=== PATIENT | female | born 1980 | race Caucasian/White ===

== ENCOUNTER 2018-03-15 04:00 | Emergency (ER) | payer SELFPAY ==
[~2018-03-15] VITALS: Ht 175.3 cm; Wt 122.7 kg
[~2018-03-15 04:00] MED LIST: FLEXERIL5 MG PO; MOTRIN 800800 MG/TAB PO; NO HOME MEDICATIONS; NORCO PO
[2018-03-15 04:07] VITALS: TEMP 97.6
[2018-03-15 04:23] LABS: COLLECTION METHOD CLEAN CATCH
[2018-03-15 04:36] LABS: MUCOUS Present /lpf; PH 5 (5-8); SQUAMOUS EPITHELIAL 0-2 /hpf; URINE APPEARANCE Clear; URINE BACTERIA None Seen /hpf; URINE BILIRUBIN Negative (NEGATIVE); URINE BLOOD Negative (NEGATIVE); URINE COLOR Yellow; URINE GLUCOSE Negative (NEGATIVE); URINE KETONE Negative (NEGATIVE); URINE LEUKOCYTE ESTERASE Negative (NEGATIVE); URINE NITRATE Negative (NEGATIVE); URINE PROTEIN(semi-quant) 1+ (NEGATIVE); URINE RBC 0-2 /hpf; URINE UROBILINOGEN Negative (NEGATIVE)
[2018-03-15 04:59] LABS: BASO % 0.6 % (0.0-2.0); EOS # 0.3 (0.0-0.7); EOS % 5.1 % (0-4.0); GRAN # 4.2 (1.4-6.5); HEMATOCRIT 39.8 % (37.0-47.0); HEMOGLOBIN 13.4 g/dl (12.5-16.0); LYMPH # 1.4 (1.2-3.4); LYMPH % 21.5 % (20.0-51.0); MEAN CELL VOLUME 84 fl (80.0-100.0); MEAN CORPUSCULAR HEMOGLOBIN 28 pg (27.0-31.0); MEAN CORPUSCULAR HGB CONC 34 g/dl (33.0-37.0); MEAN PLATELET VOLUME 9.1 fl (7.4-10.4); MONO # 0.6 (0.1-0.6); MONO % 9.5 % (1.7-9.3); PLATELET COUNT 249 K/mm3 (130-400); RED BLOOD COUNT 4.75 M/mm3 (4.10-5.30); REDCELL DISTRIBUTION WIDTH-CV 12.4 % (11.5-14.5)
[2018-03-15 05:13] LABS: ALBUMIN 4.3 gm/dL (3.5-5.0); BILIRUBIN,TOTAL 0.4 mg/dL (0.0-1.0); C-REACTIVE PROTEIN 1.6 mg/dL (0.0-0.9); CALCIUM 9.2 mg/dL (8.4-10.2); CREATININE, serum 0.83 mg/dL (0.52-1.25); POTASSIUM 3.7 mmol/L (3.4-5.0); TOTAL PROTEIN 7.7 gm/dL (6.4-8.2)
[2018-03-15] MEDS ORDERED: LEVAQUIN 750MG750 M1 PO (05:48)
[2018-03-15] MEDS ORDERED: PHENERGAN W/CO120 M1 PO (05:48)
[2018-03-15 07:04] VITALS: BP 98/49; PULSE 104
== END 2018-03-15 07:06 | disposition home or self-care (01) ==
LOC: COL.ER 04:00
PROVIDERS: Emergency Medicine
DX: J18.1 Lobar pneumonia, unspecified organism (principal)
CPT/HCPCS: J1100; J1956; J7030

== ENCOUNTER 2018-04-24 21:22 | Emergency (ER) | payer SELFPAY ==
[~2018-04-24] VITALS: Ht 175.3 cm; Wt 122.7 kg
[~2018-04-24 21:22] MED LIST changes: +LEVAQUIN 750MG750 M1 PO; +PHENERGAN W/CO120 M1 PO
[2018-04-24] MEDS ORDERED: NAPROXEN 3375 MG/TAB PO (22:02)
[2018-04-24] MEDS ORDERED: NORCO 325 MG-51 TAB PO (22:02)
[2018-04-24 22:20] VITALS: BP 131/81; PULSE 86; TEMP 97.8
== END 2018-04-24 22:20 | disposition home or self-care (01) ==
LOC: COL.ER 21:22
DX: S93.601A Unspecified sprain of right foot, initial encounter (principal); X50.0XXA Overexertion from strenuous movement or load, initial encounter; Y92.009 Unspecified place in unspecified non-institutional (private) residence as the place of occurrence of the external cause

== ENCOUNTER 2018-07-25 10:07 | Emergency (ER) | payer MEDICAID ==
[~2018-07-25] VITALS: Ht 175.3 cm; Wt 122.7 kg
[~2018-07-25 10:07] MED LIST changes: +NAPROXEN 3375 MG/TAB PO; +NORCO 325 MG-51 TAB PO
[2018-07-25 10:11] VITALS: TEMP 97.2
[2018-07-25] MEDS ORDERED: CLARITIN 1010 MG/TAB PO (10:19)
[2018-07-25] MEDS ORDERED: ZYRTEC 10MG10 MG PO (10:21)
[2018-07-25] MEDS ORDERED: FIORICET 325 MG1 TA1 PO (11:15)
[2018-07-25] MEDS ORDERED: ZOFRAN 4MG T4 MG/TAB PO (11:16)
[2018-07-25 11:42] VITALS: BP 94/56; PULSE 70
== END 2018-07-25 11:44 | disposition home or self-care (01) ==
LOC: COL.ER 10:07
DX: G43.909 Migraine, unspecified, not intractable, without status migrainosus (principal); F31.9 Bipolar disorder, unspecified; F20.9 Schizophrenia, unspecified; Z87.891 Personal history of nicotine dependence; Z98.890 Other specified postprocedural states
CPT/HCPCS: J1885; J2550

== ENCOUNTER 2018-08-16 00:13 | Emergency (ER) | payer MEDICAID ==
[~2018-08-16] VITALS: Ht 175.3 cm; Wt 122.7 kg
[~2018-08-16 00:13] MED LIST changes: +CLARITIN 1010 MG/TAB PO; +FIORICET 325 MG1 TA1 PO; +ZOFRAN 4MG T4 MG/TAB PO; +ZYRTEC 10MG10 MG PO
[2018-08-16 00:16] VITALS: TEMP 97.1
[2018-08-16 01:04] LABS: BASO # 0.1 (0.0-0.2); BASO % 0.7 % (0.0-2.0); EOS # 0.4 (0.0-0.7); EOS % 4.6 % (0-4.0); GRAN # 5.2 (1.4-6.5); GRAN % 59.5 % (42.2-75.2); HEMATOCRIT 37.9 % (37.0-47.0); LYMPH # 2.4 (1.2-3.4); LYMPH % 28.2 % (20.0-51.0); MEAN CELL VOLUME 84 fl (80.0-100.0); MEAN CORPUSCULAR HEMOGLOBIN 29 pg (27.0-31.0); MEAN CORPUSCULAR HGB CONC 34 g/dl (33.0-37.0); MEAN PLATELET VOLUME 9.4 fl (7.4-10.4); MONO # 0.6 (0.1-0.6); MONO % 6.7 % (1.7-9.3); PLATELET COUNT 304 K/mm3 (130-400); RED BLOOD COUNT 4.54 M/mm3 (4.10-5.30); REDCELL DISTRIBUTION WIDTH-CV 12.7 % (11.5-14.5)
[2018-08-16 01:18] LABS: ALANINE AMINOTRANSFERASE 28 U/L (9-52); ALBUMIN 4.1 gm/dL (3.5-5.0); ALKALINE PHOSPHATASE 64 U/L (50-136); ANION GAP 10 mmol/L (7-16); AST,SGOT 29 U/L (15-37); BILIRUBIN,TOTAL 0.5 mg/dL (0.0-1.0); BLOOD UREA NITROGEN 13 mg/dL (7-17); C-REACTIVE PROTEIN 1.1 mg/dL (0.0-0.9); CALCIUM 9.4 mg/dL (8.4-10.2); CARBON DIOXIDE 26 mmol/L (22-30); CHLORIDE 105 mmol/L (98-107); CREATININE, serum 0.73 (0.52-1.25); GLUCOSE 108 mg/dL (74-106); POTASSIUM 3.7 mmol/L (3.4-5.0); SODIUM 141 mmol/L (137-145); TOTAL PROTEIN 7.3 gm/dL (6.4-8.2)
[2018-08-16 01:26] LABS: TROPONIN-I < 0.012 ng/mL (0.000-0.035)
[2018-08-16 02:56] LABS: COLLECTION METHOD CLEAN CATCH
[2018-08-16 03:01] LABS: MUCOUS Present /lpf; PH 7 (5-8); SQUAMOUS EPITHELIAL 0-2 /hpf; URINE APPEARANCE Clear; URINE BACTERIA None Seen /hpf; URINE BILIRUBIN Negative (NEGATIVE); URINE BLOOD Negative (NEGATIVE); URINE COLOR Yellow; URINE GLUCOSE Negative (NEGATIVE); URINE KETONE Negative (NEGATIVE); URINE LEUKOCYTE ESTERASE Trace (NEGATIVE); URINE NITRATE Negative (NEGATIVE); URINE PROTEIN(semi-quant) Negative (NEGATIVE); URINE RBC 0-2 /hpf; URINE UROBILINOGEN Negative (NEGATIVE)
[2018-08-16] MEDS ORDERED: ZITHROMAX Z PA250 MG PO (03:56)
[2018-08-16 05:16] VITALS: BP 104/60; PULSE 75
== END 2018-08-16 05:16 | disposition home or self-care (01) ==
LOC: COL.ER 00:13
PROVIDERS: Physician Assistant
DX: R07.89 Other chest pain (principal); M79.601 Pain in right arm; G43.909 Migraine, unspecified, not intractable, without status migrainosus
CPT/HCPCS: J1885; J2060

== ENCOUNTER → 2018-09-04 | Outpatient (CLI) | payer MEDICAID ==
[~2018-09-04] MED LIST changes: +ZITHROMAX Z PA250 MG PO
[2018-09-04 17:19] LABS: CHOLESTEROL RISK RATIO 4.3
== END ==
LOC: ZCOL.LAB 16:05
PROVIDERS: Family Medicine
DX: Z13.1 Encounter for screening for diabetes mellitus (principal); Z13.220 Encounter for screening for lipoid disorders

== ENCOUNTER → 2018-10-09 | Outpatient (CLI) | payer MEDICAID | LOC: ZCOL.LAB 16:30 | DX: E66.01 Morbid (severe) obesity due to excess calories (principal) ==

== ENCOUNTER 2019-01-07 22:49 | Emergency (ER) | payer MEDICAID ==
[~2019-01-07] VITALS: Ht 175.3 cm; Wt 122.7 kg
[2019-01-07 23:44] LABS: STREP SCREEN NEGATIVE
[2019-01-08] MEDS ORDERED: PREDNISONE20 MG PO (00:08)
[2019-01-08 00:23] VITALS: BP 132/76; PULSE 96; TEMP 98.7
== END 2019-01-08 00:23 | disposition home or self-care (01) ==
LOC: COL.ER 22:49
PROVIDERS: Nurse Practitioner
DX: J20.9 Acute bronchitis, unspecified (principal); F31.9 Bipolar disorder, unspecified; G43.909 Migraine, unspecified, not intractable, without status migrainosus; F20.9 Schizophrenia, unspecified; Z87.891 Personal history of nicotine dependence
CPT/HCPCS: J7512

== ENCOUNTER 2019-01-21 01:59 | Emergency (ER) | payer MEDICAID ==
[~2019-01-21 01:59] MED LIST changes: +PREDNISONE20 MG PO
[2019-01-21 02:07] VITALS: BP 129/85; PULSE 93; TEMP 97.1
[2019-01-21 02:34] LABS: COLLECTION METHOD CLEAN CATCH
[2019-01-21 02:43] LABS: MUCOUS Present /lpf; PH 5 (5-8); SQUAMOUS EPITHELIAL 0-2 /hpf; URINE APPEARANCE Clear; URINE BACTERIA Rare /hpf; URINE BILIRUBIN Negative (NEGATIVE); URINE BLOOD Negative (NEGATIVE); URINE COLOR Yellow; URINE GLUCOSE Negative (NEGATIVE); URINE KETONE Negative (NEGATIVE); URINE LEUKOCYTE ESTERASE Negative (NEGATIVE); URINE NITRATE Negative (NEGATIVE); URINE PROTEIN(semi-quant) Negative (NEGATIVE); URINE RBC 0-2 /hpf; URINE UROBILINOGEN Negative (NEGATIVE)
[2019-01-21] MEDS ORDERED: CEPHALEXIN500 M1 PO (02:58)
== END 2019-01-21 03:11 | disposition home or self-care (01) ==
LOC: COL.ER 01:59
PROVIDERS: Emergency Medicine
DX: L60.0 Ingrowing nail (principal); N89.8 Other specified noninflammatory disorders of vagina; Z87.891 Personal history of nicotine dependence

== ENCOUNTER 2019-01-29 15:03 | Emergency (ER) | payer MEDICAID ==
[~2019-01-29] VITALS: Ht 175.3 cm; Wt 118.2 kg
[~2019-01-29 15:03] MED LIST changes: +CEPHALEXIN500 M1 PO
[2019-01-29 15:12] VITALS: BP 121/75; TEMP 96.8
[2019-01-29] MEDS ORDERED: BACTRIM DS 8001 TAB PO (15:32)
[2019-01-29 15:49] VITALS: PULSE 78
== END 2019-01-29 15:51 | disposition home or self-care (01) ==
LOC: COL.ER 15:03
DX: L60.0 Ingrowing nail (principal); L08.9 Local infection of the skin and subcutaneous tissue, unspecified; Z87.891 Personal history of nicotine dependence; Z98.890 Other specified postprocedural states

== ENCOUNTER → 2019-07-13 | Outpatient (CLI) | payer MEDICAID ==
[~2019-07-13] MED LIST changes: +BACTRIM DS 8001 TAB PO
== END ==
LOC: ZCOL.LAB 18:59
DX: Z11.59 Encounter for screening for other viral diseases (principal)

== ENCOUNTER 2019-12-12 22:27 | Emergency (ER) | payer BC, MEDICAID ==
[~2019-12-12] VITALS: Ht 175.3 cm; Wt 112.5 kg
[~2019-12-12 22:27] MED LIST changes: +FLEXERIL 1010 MG/TAB PO
[2019-12-12 23:53] LABS: BASO # 0.1 (0.0-0.2); BASO % 0.6 % (0.0-2.0); EOS # 0.6 (0.0-0.7); EOS % 5.6 % (0-4.0); GRAN # 6.7 (1.4-6.5); GRAN % 61.9 % (42.2-75.2); HEMATOCRIT 37.5 % (37.0-47.0); HEMOGLOBIN 12.5 g/dl (12.5-16.0); LYMPH # 2.8 (1.2-3.4); LYMPH % 25.6 % (20.0-51.0); MEAN CELL VOLUME 85 fl (80.0-100.0); MEAN CORPUSCULAR HEMOGLOBIN 28 pg (27.0-31.0); MEAN CORPUSCULAR HGB CONC 33 g/dl (33.0-37.0); MEAN PLATELET VOLUME 9.6 fl (7.4-10.4); MONO # 0.7 (0.1-0.6); PLATELET COUNT 292 K/mm3 (130-400); REDCELL DISTRIBUTION WIDTH-CV 12.4 % (11.5-14.5)
[2019-12-13 00:08] LABS: ALANINE AMINOTRANSFERASE 22 U/L (4-34); ALBUMIN 4.2 gm/dL (3.5-5.0); ALKALINE PHOSPHATASE 58 U/L (50-136); ANION GAP 7 mmol/L (7-16); AST,SGOT 24 U/L (15-37); BILIRUBIN,TOTAL 0.5 mg/dL (0.0-1.0); BLOOD UREA NITROGEN 10 mg/dL (7-17); C-REACTIVE PROTEIN 1.4 mg/dL (0.0-0.9); CALCIUM 9.5 mg/dL (8.4-10.2); CARBON DIOXIDE 28 mmol/L (22-30); CHLORIDE 103 mmol/L (98-107); CREATININE, serum 0.75 (0.52-1.25); GLUCOSE 111 mg/dL (74-106); LIPASE 91 U/L (23-300); POTASSIUM 3.6 mmol/L (3.4-5.0); SODIUM 138 mmol/L (137-145)
[2019-12-13 00:18] LABS: TROPONIN-I < 0.012 ng/mL (0.000-0.035)
[2019-12-13 03:35] VITALS: BP 132/67; PULSE 82; TEMP 97.8
== END 2019-12-13 03:37 | disposition home or self-care (01) ==
LOC: COL.ER 22:27
PROVIDERS: Emergency Medicine
DX: R07.89 Other chest pain (principal); R05 Cough; F17.210 Nicotine dependence, cigarettes, uncomplicated; Z20.828 Contact with and (suspected) exposure to other viral communicable diseases
CPT/HCPCS: J1170; J1885; J7030

== ENCOUNTER 2020-06-29 23:27 | Emergency (ER) | payer BC, MEDICAID ==
[~2020-06-29] VITALS: Ht 175.3 cm; Wt 117.3 kg
[2020-06-29 23:40] VITALS: TEMP 97
[2020-06-30 02:22] VITALS: BP 152/78; PULSE 73
== END 2020-06-30 02:22 | disposition home or self-care (01) ==
LOC: COL.ER 23:27
DX: M25.511 Pain in right shoulder (principal)
CPT/HCPCS: J1170; J2550

== ENCOUNTER 2021-03-28 15:37 | Emergency (ER) | payer BC, MEDICAID ==
[~2021-03-28] VITALS: Ht 175.4 cm; Wt 115.0 kg
[2021-03-28 17:24] VITALS: BP 145/81; PULSE 81; TEMP 98.2
[2021-03-28] MEDS ORDERED: PROVENTIL0.09 MG/A1 IH (18:35)
[2021-03-28] MEDS ORDERED: TESSALON P100 MG/CAP PO (18:35)
[2021-03-28] MEDS ORDERED: PREDNISONE20 MG PO (18:35)
== END 2021-03-28 18:42 | disposition home or self-care (01) ==
LOC: COL.ER 15:37
DX: J20.9 Acute bronchitis, unspecified (principal); J45.909 Unspecified asthma, uncomplicated; Z20.822 Contact with and (suspected) exposure to COVID-19

== ENCOUNTER 2021-05-04 15:30 | Emergency (ER) | payer BC, MEDICAID ==
[~2021-05-04] VITALS: Ht 175.3 cm; Wt 116.2 kg
[~2021-05-04 15:30] MED LIST changes: +PROVENTIL0.09 MG/A1 IH; +TESSALON P100 MG/CAP PO
[2021-05-04 15:40] VITALS: TEMP 97.3
[2021-05-04] MEDS ORDERED: FLEXERIL 1010 MG/TAB PO (17:15)
[2021-05-04] MEDS ORDERED: PERCOCET 325 MG1 TA2 PO (17:15)
[2021-05-04 17:24] VITALS: BP 117/73; PULSE 79
== END 2021-05-04 17:41 | disposition home or self-care (01) ==
LOC: COL.ER 15:30
DX: R50.9 Fever, unspecified (principal)
CPT/HCPCS: J1885; J2360

== ENCOUNTER 2021-09-26 14:01 | Emergency (ER) | payer BC, MEDICAID ==
[~2021-09-26] VITALS: Ht 175.3 cm; Wt 118.2 kg
[~2021-09-26 14:01] MED LIST changes: +PERCOCET 325 MG1 TA2 PO
[2021-09-26 14:34] VITALS: TEMP 98
[2021-09-26 15:15] LABS: BASO % 0.5 % (0.0-2.0); EOS # 0.3 K/mm3 (0.0-0.7); EOS % 3.4 % (0.0-4.0); GRAN # 4.7 K/mm3 (1.4-6.5); GRAN % 60.3 % (42.2-75.2); HEMATOCRIT 39.5 % (37.0-47.0); HEMOGLOBIN 13.3 g/dl (12.5-16.0); LYMPH # 2.2 K/mm3 (1.2-3.4); LYMPH % 28.8 % (20.0-51.0); MEAN CELL VOLUME 83 fl (80.0-100.0); MEAN CORPUSCULAR HEMOGLOBIN 28 pg (27-31); MEAN CORPUSCULAR HGB CONC 34 g/dl (33.0-37.0); MEAN PLATELET VOLUME 9.5 fl (7.4-10.4); MONO # 0.5 K/mm3 (0.1-0.6); MONO % 6.7 % (1.7-9.3); PLATELET COUNT 321 K/mm3 (130-400); RED BLOOD COUNT 4.76 M/mm3 (4.10-5.30); REDCELL DISTRIBUTION WIDTH-CV 12.9 % (11.5-14.5)
[2021-09-26 15:38] LABS: ALANINE AMINOTRANSFERASE 27 U/L (0-55); ALBUMIN 4.3 gm/dL (3.5-5.0); ALKALINE PHOSPHATASE 64 U/L (40-150); ANION GAP 11 mmol/L (7-16); AST,SGOT 23 U/L (5-34); BILIRUBIN,TOTAL 0.5 mg/dL (0.2-1.2); BLOOD UREA NITROGEN 12 mg/dL (7-19); CALCIUM 9.6 mg/dL (8.4-10.2); CARBON DIOXIDE 25 mmol/L (22-29); CHLORIDE 107 mmol/L (98-107); CREATININE, serum 0.77 mg/dL (0.57-1.11); GLUCOSE 84 mg/dL (70-99); LIPASE 22 U/L (8-78); POTASSIUM 3.6 mmol/L (3.5-4.5); SODIUM 143 mmol/L (136-145); TOTAL PROTEIN 7.7 gm/dL (6.2-8.1)
[2021-09-26 15:52] LABS: TROPONIN-I < 0.010 ng/mL (0.00-0.033)
[2021-09-26] MEDS ORDERED: REGLAN 10MG10 MG/TAB PO (17:13)
[2021-09-26] MEDS ORDERED: PROTONIX 40MG T40 MG PO (17:13)
[2021-09-26 17:20] VITALS: BP 134/84; PULSE 63
== END 2021-09-26 17:28 | disposition home or self-care (01) ==
LOC: COL.ER 14:01
PROVIDERS: Emergency Medicine
DX: R10.11 Right upper quadrant pain (principal); R10.13 Epigastric pain; R11.0 Nausea; Z32.02 Encounter for pregnancy test, result negative
CPT/HCPCS: J2270; J2765; J7030; Q9967

== ENCOUNTER 2021-11-23 13:47 | Emergency (ER) | payer BC, MEDICAID ==
[~2021-11-23] VITALS: Ht 175.3 cm; Wt 117.3 kg
[~2021-11-23 13:47] MED LIST changes: +PROTONIX 40MG T40 MG PO; +REGLAN 10MG10 MG/TAB PO
[2021-11-23 14:02] VITALS: TEMP 97.9
[2021-11-23] MEDS ORDERED: NORCO 325 MG-51 TAB PO (14:42)
[2021-11-23 15:00] VITALS: BP 132/77; PULSE 89
== END 2021-11-23 15:00 | disposition home or self-care (01) ==
LOC: COL.ER 13:47
DX: M25.511 Pain in right shoulder (principal); X50.1XXA Overexertion from prolonged static or awkward postures, initial encounter

== ENCOUNTER 2023-09-12 19:00 | Emergency (ER) | payer BC ==
[~2023-09-12] VITALS: Ht 175.3 cm; Wt 124.5 kg
[2023-09-12 19:05] VITALS: TEMP 98.2
[2023-09-12] MEDS ORDERED: Home HYDROcodone/Acetaminophen 5/325 MG #4 TABS/PACK PO ONE (23:00)
[2023-09-12] MEDS ORDERED: NORCO 325 MG-51 TAB PO (23:06)
[2023-09-12 23:22] VITALS: BP 138/90; PULSE 78
== END 2023-09-12 23:22 | disposition home or self-care (01) ==
LOC: COL.ER 19:00
DX: S76.812A Strain of other specified muscles, fascia and tendons at thigh level, left thigh, initial encounter (principal); X58.XXXA Exposure to other specified factors, initial encounter
CPT/HCPCS: L1830; L1846